=== PATIENT | female | born 1990 | race Caucasian/White ===

== ENCOUNTER 2017-10-23 14:52 | Emergency (ER) | payer OTHER ==
[~2017-10-23] VITALS: Ht 162.6 cm; Wt 118.3 kg
[2017-10-23 15:01] VITALS: TEMP 36.7; Ht 162.6 cm; Wt 118.3 kg
[2017-10-23] MEDS ORDERED: ONDANSETRON INJ 2 MG/ML 2 ML VIAL IV STA (15:07)
[2017-10-23] MEDS ORDERED: MoRPHine SULFATE 4 MG/ML 1 ML CARP\\VIAL IV STA (15:07)
[2017-10-23] MEDS ORDERED: KETOROLAC TROMETHAMINE 30 MG/ML VIAL IV STA (15:07)
[2017-10-23 15:37] LABS: BASO % 0.3 %; BASO ABS # 0.02 K/uL (0-0.2); EOS % 0.6 %; EOS ABS # 0.04 K/uL (0-0.5); HEMATOCRIT 39.6 % (37-47); HEMOGLOBIN 13.4 g/dL (12.0-16.0); IG# 0.02 K/uL (0.00-0.02); LYMPH % 27.9 %; LYMPH ABS # 1.99 K/uL (1.2-3.4); MEAN CELL VOLUME 82.3 fL (80-100); MEAN CORPUSCULAR HEMOGLOBIN 27.9 pg (25-34); MEAN CORPUSCULAR HGB CONC 33.8 g/dl (32-36); MEAN PLATELET VOLUME 12.7 fL (7.4-10.4); MONO % 7.7 %; MONO ABS # 0.55 K/uL (0.11-0.59); NEUT % 63.2 %; NEUT ABS # 4.52 K/uL (1.4-6.5); PLATELET COUNT 226 K/uL (130-400); RED CELL DISTRIBUTION WIDTH CV 14.8 % (11.5-14.5); RED CELL DISTRIBUTION WIDTH SD 44.8 fL (36.4-46.3); WHITE BLOOD COUNT 7.14 K/uL (4.8-10.8)
[2017-10-23] MEDS ORDERED: ACET-1256 PO (15:39)
[2017-10-23] MEDS ORDERED: FLUO20CA35 PO (15:39)
[2017-10-23] MEDS ORDERED: ETON1IMP2 INTRAD (15:39)
[2017-10-23] MEDS ORDERED: IBUP-1050 PO (15:39)
[2017-10-23 16:03] VITALS: O2SAT 99
[2017-10-23 16:10] LABS: ALBUMIN 4.1 gm/dl (3.4-5.0); ALKALINE PHOSPHATASE 78 U/L (45-117); ALT/SGPT 25 U/L (12-78); BLOOD UREA NITROGEN 7 mg/dl (7-18); CARBON DIOXIDE 25 mmol/L (21-32); CKMB < 0.5 ng/ml (0.5-3.6); CREATININE 0.69 mg/dl (0.60-1.20); GLUCOSE 82 mg/dl (70-99); LIPASE 97 U/L (73-393); SODIUM 139 mmol/L (136-145); TOTAL PROTEIN 7.9 gm/dl (6.4-8.2)
[2017-10-23] MEDS ORDERED: OPTIRAY 320 IV PRN (16:45)
[2017-10-23 16:50] LABS: POTASSIUM 3.9 mmol/L (3.5-5.1)
--- NOTE | 2017-10-23 17:03 | DIAGNOSTIC IMAGING REPORT ---
CHEST CTA for PULMONARY ARTERIES CT DOSE: 577.12 mGy.cm HISTORY: Atypical chest pain. TECHNIQUE: Multiaxial CT images of the chest were performed following the intravenous administration of contrast to evaluate the pulmonary arteries. Maximal intensity projection images were also obtained. A dose lowering technique was utilized adhering to the principles of ALARA. COMPARISON STUDY: None. FINDINGS: There is a normal caliber thoracic aorta with no evidence for dissection. There is no evidence for pulmonary embolus. No pleural effusions. No pneumothorax. The liver and spleen are unremarkable. No mediastinal or hilar lymphadenopathy. The central airways are patent. The lungs are clear. IMPRESSION: No evidence for pulmonary embolus. Electronically signed by: Lukas Pritchett M.D. 10/23/2017 5:02 PM Dictated Date/Time: 10/23/2017 4:54 PM
--- NOTE | 2017-10-23 17:32 | DIAGNOSTIC IMAGING REPORT ---
THORACIC SPINE 3 VIEWS HISTORY: mid back pain COMPARISON: None. FINDINGS: There is no fracture. No subluxation. Disc spaces are preserved. There are few small endplate osteophytes within the mid to lower thoracic spine. This is consistent with minor degenerative change. IMPRESSION: No fracture or subluxation within the thoracic spine. A few small endplate osteophytes within the mid to lower thoracic spine. Electronically signed by: Lukas Pritchett M.D. 10/23/2017 5:30 PM Dictated Date/Time: 10/23/2017 5:29 PM
--- NOTE | 2017-10-23 17:32 | DIAGNOSTIC IMAGING REPORT ---
CHEST 1 VW FRONT-NOT PORTABLE HISTORY: Atypical Chest Pain COMPARISON: Chest CTA 10/23/2017. FINDINGS: The lungs are clear. Cardiac silhouette is normal in size. No pleural effusions. No pneumothorax. IMPRESSION: No acute process. Electronically signed by: Lukas Pritchett M.D. 10/23/2017 5:31 PM Dictated Date/Time: 10/23/2017 5:31 PM
--- NOTE | 2017-10-23 17:34 | DIAGNOSTIC IMAGING REPORT ---
LUMBAR SPINE 5 VIEWS HISTORY: lower back pain COMPARISON: None. FINDINGS: There is no fracture. No subluxation. Disc spaces are preserved. Cholecystectomy. Intravenous contrast within the renal collecting systems and bladder due to the prior CT examination. IMPRESSION: No fracture or subluxation within the lumbar spine. Electronically signed by: Lukas Pritchett M.D. 10/23/2017 5:33 PM Dictated Date/Time: 10/23/2017 5:31 PM
[2017-10-23] MEDS ORDERED: OXYCODONE IR HOME PACK PO ONE (18:45)
[2017-10-23 19:07] VITALS: BP 127/95; PULSE 60; O2SAT 98
--- NOTE | 2017-10-23 22:48 | EMERGENCY ROOM VISIT NOTE ---
History Report prepared by Migelibjayden: Erin Saavedra Under the Supervision of: Dr. Alex Guzmán D.O. First contact with patient: 14:52 Chief Complaint: BACK PAIN Stated Complaint: BACK PAIN, SOB History of Present Illness The patient is a 26 year old female who presents to the Emergency Room with complaints of persistent back pain since earlier this morning. She states she woke up with the pain, which she rates as an 8/10 in severity. The pain does not radiate to her legs or buttocks. Movement worsens her discomfort. She denies any numbness or tingling in her groin or legs. She denies any recent falls or trauma. She has no history of IV drug use. She no longer has her gallbladder but still has her appendix. She states she experienced chest pain around 1345 today, but it has resolved here in the ED. she notes that her pain recurred and worsened around 1 PM. At this point she did get some chest pain. She described chest pain is sharp stabbing radiating through to back. Pt denies headache, change in vision, fevers, shortness of breath, nausea, vomiting , diarrhea, pain with urination, and melena. Source of History: patient Onset: earlier this morning Position: back Symptom Intensity: 8/10 Timing: other (persistent) Modifying Factors (Worsening): movement Associated Symptoms: + chest pain, No fevers, No headache, No SOB, No nausea , No vomiting, No melena, No diarrhea, No urinary symptoms, No numbness (of groin or legs) Review of Systems See HPI for pertinent positives & negatives. A total of 10 systems reviewed and were otherwise negative. Past Medical & Surgical Medical Problems: (1) Depression (2) GERD (gastroesophageal reflux disease) Social History Alcohol Use: occasionally Drug Use: none Marital Status: single, in relationship Housing Status: lives with family Occupation Status: employed Current/Historical Medications Scheduled Etonogestrel (Nexplanon), 68 MG INTRAD UD Fluoxetine (Prozac), 20 MG PO DAILY Scheduled PRN Acetaminophen (Tylenol), 500 MG PO UD PRN for Pain or Fever Ibuprofen (Advil), 200 MG PO UD PRN for Pain or Fever Allergies Coded Allergies: Sulfamethoxazole w/Trimethoprim (Verified Allergy, Intermediate, Hives, ) Physical Exam Vital Signs Date Time Temp Pulse Resp B/P (MAP) Pulse Ox O2 Delivery O2 Flow Rate FiO2 10/23/17 19:07 60 20 127/95 98 10/23/17 17:39 66 149/119 97 Room Air 10/23/17 16:55 63 10/23/17 16:03 99 Room Air 10/23/17 16:03 68 161/95 99 Room Air 10/23/17 15:01 36.7 93 18 134/99 100 Room Air Physical Exam GENERAL: Sitting up in bed, alert, well appearing, well nourished, in mild distress holding low back, non-toxic EYE EXAM: normal conjunctiva. OROPHARYNX: no exudate, no erythema, lips, buccal mucosa, and tongue normal and mucous membranes are moist NECK: supple, no nuchal rigidity, no adenopathy, non-tender LUNGS: Clear to auscultation. Normal chest wall mechanics HEART: no murmurs, S1 normal and S2 normal ABDOMEN: abdomen soft, non-tender, normo-active bowel sounds, no masses, no rebound or guarding. BACK: Back is symmetrical on inspection and there is no deformity, acute reproducible tenderness in mid thoracic and upper lumbar paraspinal region SKIN: no rashes and no bruising UPPER EXTREMITIES: upper extremities are grossly normal. LOWER EXTREMITIES: No pitting edema. Flexion and extension of the hips, knees, ankles, and EHL 5/5 bilaterally. Gross sensation is intact. DP's are 2/4 bilateral. Patellar and Achilles reflexes are 1/4 bilateral. NEURO EXAM: Normal sensorium, cranial nerves II-XII intact, normal speech, no weakness of arms. Medical Decision & Procedures ER Provider Diagnostic Interpretation: Radiology results as stated below per my review and the radiologist's interpretation: CHEST CTA for PULMONARY ARTERIES CT DOSE: 577.12 mGy.cm HISTORY: Atypical chest pain. TECHNIQUE: Multiaxial CT images of the chest were performed following the intravenous administration of contrast to evaluate the pulmonary arteries. Maximal intensity projection images were also obtained. A dose lowering technique was utilized adhering to the principles of ALARA. COMPARISON STUDY: None. FINDINGS: There is a normal caliber thoracic aorta with no evidence for dissection. There is no evidence for pulmonary embolus. No pleural effusions. No pneumothorax. The liver and spleen are unremarkable. No mediastinal or hilar lymphadenopathy. The central airways are patent. The lungs are clear. IMPRESSION: No evidence for pulmonary embolus. Electronically signed by: Lukas Pritchett M.D. 10/23/2017 5:02 PM CHEST 1 VW FRONT-NOT PORTABLE HISTORY: Atypical Chest Pain COMPARISON: Chest CTA 10/23/2017. FINDINGS: The lungs are clear. Cardiac silhouette is normal in size. No pleural effusions. No pneumothorax. IMPRESSION: No acute process. Electronically signed by: Lukas Pritchett M.D. 10/23/2017 5:31 PM LUMBAR SPINE 5 VIEWS HISTORY: lower back pain COMPARISON: None. FINDINGS: There is no fracture. No subluxation. Disc spaces are preserved. Cholecystectomy. Intravenous contrast within the renal collecting systems and bladder due to the prior CT examination. IMPRESSION: No fracture or subluxation within the lumbar spine. Electronically signed by: Lukas Pritchett M.D. 10/23/2017 5:33 PM THORACIC SPINE 3 VIEWS HISTORY: mid back pain COMPARISON: None. FINDINGS: There is no fracture. No subluxation. Disc spaces are preserved. There are few small endplate osteophytes within the mid to lower thoracic spine. This is consistent with minor degenerative change. IMPRESSION: No fracture or subluxation within the thoracic spine. A few small endplate osteophytes within the mid to lower thoracic spine. Electronically signed by: Lukas Pritchett M.D. 10/23/2017 5:30 PM Laboratory Results 10/23/17 15:23 Red Blood Count 4.81, Mean Corpuscular Volume 82.3, Mean Corpuscular Hemoglobin 27.9, Mean Corpuscular Hemoglobin Concent 33.8, Mean Platelet Volume 12.7, Neutrophils (%) (Auto) 63.2, Lymphocytes (%) (Auto) 27.9, Monocytes (%) (Auto) 7.7, Eosinophils (%) (Auto) 0.6, Basophils (%) (Auto) 0.3, Neutrophils # (Auto) 4.52, Lymphocytes # (Auto) 1.99, Monocytes # (Auto) 0.55, Eosinophils # (Auto) 0.04, Basophils # (Auto) 0.02 10/23/17 15:23 10/23/17 16:12 Test 10/23/17 15:04 10/23/17 15:23 10/23/17 16:12 10/23/17 16:20 Creatine Kinase MB Ratio (0-3.0) White Blood Count 7.14 K/uL (4.8-10.8) Red Blood Count 4.81 M/uL (4.2-5.4) Hemoglobin 13.4 g/dL (12.0-16.0) Hematocrit 39.6 % (37-47) Mean Corpuscular Volume 82.3 fL (80-100) Mean Corpuscular Hemoglobin 27.9 pg (25-34) Mean Corpuscular Hemoglobin Concent 33.8 g/dl (32-36) Platelet Count 226 K/uL (130-400) Mean Platelet Volume 12.7 fL (7.4-10.4) Neutrophils (%) (Auto) 63.2 % Lymphocytes (%) (Auto) 27.9 % Monocytes (%) (Auto) 7.7 % Eosinophils (%) (Auto) 0.6 % Basophils (%) (Auto) 0.3 % Neutrophils # (Auto) 4.52 K/uL (1.4-6.5) Lymphocytes # (Auto) 1.99 K/uL (1.2-3.4) Monocytes # (Auto) 0.55 K/uL (0.11-0.59) Eosinophils # (Auto) 0.04 K/uL (0-0.5) Basophils # (Auto) 0.02 K/uL (0-0.2) RDW Standard Deviation 44.8 fL (36.4-46.3) RDW Coefficient of Variation 14.8 % (11.5-14.5) Immature Granulocyte % (Auto) 0.3 % Immature Granulocyte # (Auto) 0.02 K/uL (0.00-0.02) Urine Color YELLOW Urine Appearance CLEAR (CLEAR) Urine pH 8.0 (4.5-7.5) Urine Specific Allen 1.007 (1.000-1.030) Urine Protein NEG (NEG) Urine Glucose (UA) NEG (NEG) Urine Ketones NEG (NEG) Urine Occult Blood NEG (NEG) Urine Nitrite NEG (NEG) Urine Bilirubin NEG (NEG) Urine Urobilinogen NEG (NEG) Urine Leukocyte Esterase NEG (NEG) Urine WBC (Auto) 0 /hpf (0-5) Urine RBC (Auto) 0-4 /hpf (0-4) Urine Hyaline Casts (Auto) 1-5 /lpf (0-5) Urine Epithelial Cells (Auto) 5-10 /lpf (0-5) Urine Bacteria (Auto) NEG (NEG) Anion Gap 8.0 mmol/L (3-11) Est Creatinine Clear Calc Drug Dose 156.4 ml/min Estimated GFR () 139.2 Estimated GFR (Non- 120.1 BUN/Creatinine Ratio 10.0 (10-20) Calcium Level 9.0 mg/dl (8.5-10.1) Total Bilirubin 0.6 mg/dl (0.2-1) Alanine Aminotransferase (ALT/SGPT) 25 U/L (12-78) Alkaline Phosphatase 78 U/L (45-117) Creatine Kinase MB < 0.5 ng/ml (0.5-3.6) Total Protein 7.9 gm/dl (6.4-8.2) Albumin 4.1 gm/dl (3.4-5.0) Lipase 97 U/L (73-393) Direct Bilirubin 0.1 mg/dl (0-0.2) Aspartate Amino Transf (AST/SGOT) 20 U/L (15-37) Total Creatine Kinase 64 U/L (26-192) D-Dimer 260 ug/L FEU (0-500) Test 10/23/17 17:51 Troponin I < 0.015 ng/ml (0-0.045) Laboratory results per my review. Medications Administered Medications (Trade) Dose Ordered Sig/Julia Route Start Time Stop Time Status Last Admin Dose Admin Morphine Sulfate (MoRPHine SULFATE INJ) 4 mg NOW STAT IV 10/23/17 15:07 10/23/17 15:08 DC 10/23/17 15:31 4 MG Ketorolac Tromethamine (Toradol Inj) 30 mg NOW STAT IV 10/23/17 15:07 10/23/17 15:08 DC 10/23/17 15:30 30 MG Ondansetron HCl (Zofran Inj) 4 mg NOW STAT IV 10/23/17 15:07 10/23/17 15:08 DC 10/23/17 15:30 4 MG Oxycodone HCl (Roxicodone Immediate Rel 5MG Home Pack) 1 homepack UD ONCE PO 10/23/17 18:45 10/23/17 18:46 DC 10/23/17 18:46 1 HOMEPACK ECG Per My Interpretation Indication: chest pain Rate (beats per minute): 61 Rhythm: normal sinus Findings: RBBB (incomplete RBBB), other (no PVC) ED Course ED COURSE: Vital signs were reviewed and showed the patient is situationally hypertensive. The patients medical record was reviewed The above diagnostic studies were performed and reviewed. ED treatments and interventions as stated above. 1453: The patient was evaluated in room B2. A complete history and physical examination was performed. 1507: Zofran 4 mg IV, Toradol 30 mg IV, Morphine Sulfate 4 mg IV. 1750: I reevaluated the patient. She is feeling better. 1840: Upon reevaluation, the patient is feeling well and is ready to go home. I discussed my findings with the patient and she understands and agrees with the treatment plan. 1845: Oxycodone HCl 5 mg 1 homepack PO. Based on the patients age, coexisting illnesses, exam and lab findings the decision to treat as an outpatient was made. The patient remained stable while under my care. The patient appeared well at the time of discharge. Medical Decision Etiologies such as musculoskeletal, disc herniation, fracture, aortic disease, metastatic disease, cord compression, discitis, infection, renal colic, gastrointestinal, acute exacerbation of chronic back pain, sciatica, cauda equina, as well as others were entertained. Patient is a 26-year-old female who presents the ER for chest and back pain. Patient is completely neurologically intact. CBC along with BMP, LFTs, bilirubin and troponin. UA was negative and checked as she had upper back pain.. She has no abdominal pain. D-dimer was negative. EKG was unremarkable. Imaging of the lumbar thoracic spine was negative. Chest x-ray unremarkable. CT of the chest was benign. Based on history I do favor that this is all musculoskeletal but we also explored the chest pain at length. She denies any history of diabetes, high blood pressure, hyperlipidemia, CAD or sudden in her family on young age. She was given IV morphine. She felt significant better. She was discharged follow-up with PCP as an outpatient with muscle skeletal back pain. Discussed with Pt concerning signs and symptoms to watch out for. Pt was instructed to follow up with their PCP and discussed with the patient their option to return to the ED at anytime for persistent or worsening symptoms. The appropriate anticipatory guidance and out-patient management, including indications for return to the emergency department, were explained at length to the patient and understood. Medication Reconcilliation Current Medication List: was personally reviewed by me Blood Pressure Screening Patient's blood pressure: Elevated blood pressure Blood pressure disposition: Elevated BP felt to be situational Impression Primary Impression: Back pain Scribe Attestation The scribe's documentation has been prepared under my direction and personally reviewed by me in its entirety. I confirm that the note above accurately reflects all work, treatment, procedures, and medical decision making performed by me. Departure Information Dispostion Home / Self-Care Patient Instructions Back Pain - [facility], [facility] Additional Instructions Please follow up with your primary care doctor with in the next 24 hours. Any worsening of your symptoms, please return to the ED immediately. This includes any fevers greater than 100.4, worsening pain, chest pain, shortness breath, persistent nausea, vomiting, unable to eat or drink, weakness or numbness in her arms or legs, numbness in her groin, unable to move her bowels, or any other concerning signs or symptoms from your standpoint. Please take Tylenol or Motrin as needed for pain. You were given medications during this visit that will inhibit your ability to drive, operate machinery and work. Please do NOT drive, operate machinery or work for the next 12hrs. You were also given a prescription for a narcotic. While taking this medication you should also not drive, operate machinery and or work. Problem Qualifiers Primary Impression: Back pain Back pain location: thoracic back pain Chronicity: acute Back pain laterality: bilateral Qualified Codes: M54.6 - Pain in thoracic spine
== END 2017-10-23 19:08 | disposition home or self-care (01) ==
LOC: C.EDB 14:54
DX: M54.6 Pain in thoracic spine (principal); F32.9 Major depressive disorder, single episode, unspecified; K21.9 Gastro-esophageal reflux disease without esophagitis; Z97.5 Presence of (intrauterine) contraceptive device; Z79.899 Other long term (current) drug therapy; Z88.2 Allergy status to sulfonamides

== ENCOUNTER 2019-02-14 21:52 | Inpatient (IN) ==
--- NOTE | 2019-02-14 23:04 | History & Physical Report ---
Date of Service February 14, 2019 Assessment & Plan (1) Supervision of normal intrauterine in multigravida: The patient is noted to have mildly elevated blood pressures upon admission. She has no history of hypertension and has had normal blood pressures during . We will check preeclamptic labs. The patient declines regional anesthesia at this time. heart rate tracing category 2. Anticipate vaginal delivery (2) History of macrosomia in infant in prior , currently in third trimester: (3) Need for rhogam due to Rh negative mother: History of Present Illness Chief Complaint: Contractions Primary Care Provider: Self, Referred The patient is a 28-year-old 4 para 2 with an EDC of 23 February at 38+ weeks gestational age who presents to labor and delivery for evaluation of labor. Patient states the contractions began at approximately 1900 hrs. on day of admission. She denies rupture membranes or vaginal bleeding. The patient has a history of macrosomia with her 2 previous infants. The patient had been scheduled for a term induction at 39 weeks for the history of macrosomia. The patient has had a benign course. Her blood type is O negative, antibody negative, she received RhoGam on 30 November, hepatitis B negative, rubella immune, she had a normal 1 hour Glucola at 16 weeks, she had an elevated 1 hour Glucola at 28 weeks with a normal 2-hour glucose tolerance test, she had a negative third trimester beta strep culture. The patient had a negative cystic fibrosis and SMA screening, she had a negative cell free DNA screen. The patient is also interested in permanent surgical sterilization. She signed state tubal papers on 30 November. Allergies Allergy/AdvReac Type Severity Reaction Status Date / Time Bactrim Allergy Intermediate Hives Verified 10/23/17 15:33 sulfamethoxazole Allergy Intermediate Hives Verified 02/09/19 10:12 trimethoprim Allergy Intermediate Hives Verified 02/09/19 10:12 Home Medications Home Medications Medication Instructions Recorded Confirmed Type vit-iron fum-folic ac 1 tab PO DAILY 09/06/18 02/14/19 History [ Vitamin] loratadine 10 mg tablet 10 mg PO DAILY 01/02/19 02/14/19 History pyridoxine (vitamin B6) 50 mg 50 mg PO DAILY tab 01/02/19 02/14/19 History tablet ranitidine HCl 75 mg PO DAILY 07/30/19 09/11/19 History Patient History Medical History Migraines Cardiac arrhythmia Depression GERD (gastroesophageal reflux disease) History of iron deficiency anemia History of kidney stones History of migraine History of nipple discharge History of varicella No significant family history No significant past surgical history RBBB (right bundle branch block) Surgical History S/P cholecystectomy S/P tonsillectomy Family History Father Anxiety and depression Thyroid disease Grandmother (Paternal) Anxiety and depression Mother Anxiety and depression Kidney stones Thyroid disease Aunt Thyroid disease Social History Preferred Language: Guyanese Communication Ability: Effective Curtain Inspector Required: No Beliefs That Will Affect Care: None marital status: Single Current Living Situation: Family Current Living Situation Comment: Fiance and 2 children. The 2 children are not the same FOB as current preg. Other Information That Helps Us Care for You: No Feels Safe at Home: Yes Safety Concerns: Feels Safe At This Time Smoking Status: Never smoker Hx Alcohol Use: No Hx Substance Use: No Physical Exam Constitutional: WD/WN, vitals as above Respiratory: Auscultation: lungs clear to auscultation bilaterally Cardiovascular: RRR, no murmur, no edema Extremities: no calf tenderness Gastrointestinal (Abdomen): Gravid, vertex, positive heart tones, estimated weight of 8-1/2 pounds Genitourinary: OB Exam Monitor Tracing: + category II and + normal FHT variability Cervix: 3 cm dilated 50% effaced -2 station, artificial rupture membranes for clear fluid Results & Data Vital Signs (Past 12 Hours) Vital Signs Temp Pulse Resp BP 02/14/19 22:58 100 H 139/93 02/14/19 22:47 103 H 158/91 H 02/14/19 22:37 101 H 163/89 H 02/14/19 22:30 102 H 169/91 H 02/14/19 22:27 111 H 160/92 H 02/14/19 22:21 98.4 F 104 H 20 165/95 H 02/14/19 22:08 116 H 169/105 H 02/14/19 22:00 115 H 178/111 H
[2019-02-14] MEDS: LACTATED RINGER'S 1,000 ML IV PRN (23:15)
[2019-02-14 23:16] LABS: Hematocrit (blood only) 34.8 % (37-47); Hemoglobin 11.8 g/dL (12.0-16.0); Mean Corpuscular Volume 88.5 fL (80-100); Mean Platelet Volume 12.9 fL (7.4-10.4); Platelet Count 160 K/uL (130-400); RDW Coefficient of Variation 14.8 % (11.5-14.5); Red Blood Count 3.93 M/uL (4.2-5.4); White Blood Count 10.24 K/uL (4.8-10.8)
[2019-02-14 23:21] LABS: Mean Corpuscular Hgb Conc 33.9 g/dL (32-36)
[2019-02-14] MEDS ORDERED: BUPIVACAINE 0.25% 30 ML VIAL ONE (23:28)
[2019-02-14] MEDS ORDERED: fentaNYL 2MCG/ML ROPIV 1.25MG/ML 100 ML BAG EPI ONE (23:29)
[2019-02-14] MEDS ORDERED: ePHEDrine sulfate 50 MG/ML AMP ONE (23:29)
[2019-02-14] MEDS ORDERED: fentaNYL citrate 100 MCG/2 ML VIAL ONE (23:29)
[2019-02-14 23:35] LABS: Alanine Aminotransferase 19 U/L (12-78); Albumin Level 2.6 gm/dl (3.4-5.0); Aspartate Aminotransferase 18 U/L (15-37); BUN Creatinine Ratio 12.1 (10-20); Bilirubin Direct < 0.1 mg/dl (0-0.2); Blood Urea Nitrogen 8 mg/dl (7-18); Calcium 8.8 mg/dl (8.5-10.1); Carbon Dioxide 23 mmol/L (21-32); Chloride 108 mmol/L (98-107); Creatinine Clr Calc Pharmacy 135.5 ml/min; Est GFR (African American) 136.7; Est GFR (Non-African American) 117.9; Glucose 82 mg/dl (70-99); Potassium 3.6 mmol/L (3.5-5.1); Sodium 142 mmol/L (136-145)
[2019-02-14 23:37] LABS: Albumin Globulin Ratio 0.7 (0.9-2); Alkaline Phosphatase 147 U/L (45-117); Bilirubin,Total 0.3 mg/dl (0.2-1); Total Protein 6.6 gm/dl (6.4-8.2)
--- NOTE | 2019-02-14 23:47 | Anesthesiology Consultation ---
Date of Service February 14, 2019 Assessment & Plan Chart Review Chart Review: Acceptable Risk for Surgery, Patient NOT seen in Pre Admission Testing and Acceptable Risk for Labor Epidural Consults Requested none ASA ASA3 Proposed Anesthesia Anesthesia Type: General and Labor Epidural Risk / Benefits Reviewed With: PT / POA / Parent / Guardian, Accepts Plan and Informed Consent Obtained History Height/Weight Height: 5 ft 3 in Weight: 100.698 kg Allergies Allergy/AdvReac Type Severity Reaction Status Date / Time Bactrim Allergy Intermediate Hives Verified 10/23/17 15:33 sulfamethoxazole Allergy Intermediate Hives Verified 02/09/19 10:12 trimethoprim Allergy Intermediate Hives Verified 02/09/19 10:12 Medications Home Medications Medication Instructions Recorded Confirmed Last Taken vit-iron fum-folic ac 1 tab PO DAILY 09/06/18 02/14/19 02/14/19 [ Vitamin] loratadine 10 mg tablet 10 mg PO DAILY 01/02/19 02/14/19 02/14/19 pyridoxine (vitamin B6) 50 mg 50 mg PO DAILY tab 01/02/19 02/14/19 02/14/19 tablet ranitidine HCl 75 mg PO DAILY 01/02/19 02/14/19 02/14/19 Active Medications Generic Name Dose Route Start Last Admin Trade Name Freq PRN Reason Stop Dose Admin Lactated Ringer's 1,000 mls @ 125 mls/hr 02/14/19 22:46 02/14/19 23:15 Lr IV 02/16/19 22:45 999 mls/hr .Q8H PRN Administration L&D Protocol Protocol NPO Date Last Intake of Fluids: 02/14/19 Time Last Intake of Fluids: 23:00 Date Last Intake of Solids: 02/14/19 Time Last Intake of Solids: 20:00 Past Medical History Medical History Migraines Cardiac arrhythmia Depression GERD (gastroesophageal reflux disease) History of iron deficiency anemia History of kidney stones History of migraine History of nipple discharge History of varicella No significant family history No significant past surgical history RBBB (right bundle branch block) Exercise / Class Metabolic Activity III < 4 Walking/Shop/Light housework Past Family History Family History Father Anxiety and depression Thyroid disease Grandmother (Paternal) Anxiety and depression Mother Anxiety and depression Kidney stones Thyroid disease Aunt Thyroid disease Past Surgical History Surgical History S/P cholecystectomy S/P tonsillectomy Past Anesthesia History No Hx of Anesthesia Complications and No Family Hx of Anesthesia Complications History of PONV No Hx of PONV and No Hx of Motion Sickness Social History Smoking Status: Never smoker Hx Alcohol Use: No Hx Substance Use: No Physical Exam Vital Signs Last Vital Signs Temp 36.9 C 02/14/19 22:21 Pulse 101 H 02/14/19 23:44 Resp 20 02/14/19 22:21 BP 162/80 H 02/14/19 23:44 Pulse Ox 100 02/14/19 23:43 Constitutional + morbidly obese ENMT Mouth: no dentition abnormality Thyromental Distance: < 3.5 Finger Breadths Mallampati Class: II Neck normal visual inspection and trachea midline; neck extension not limited Respiratory normal respiratory effort Auscultation: lungs clear to auscultation bilaterally Cardiovascular Rate/Rhythm: regular rate and regular rhythm Heart Sounds: no murmur Musculoskeletal Spine: lumbar spine normal to inspection; normal cervical ROM Neurologic moves all extremities Motor/Sensory: no sensory deficit Psychiatric Orientation: alert and oriented x 3 Testing Laboratory Results 02/14/19 23:02 02/14/19 23:02
[2019-02-15] MEDS ORDERED: NALOXONE HCL 1 MG in SODIUM CHLORIDE 0.9% 1000ML 1,000 ML IV PRN (00:15)
[2019-02-15] MEDS ORDERED: PROMETHAZINE HCL 25 MG in SODIUM CHLORIDE 0.9% 50 ML IV PRN (00:15)
[2019-02-15] MEDS ORDERED: DiphenhydrAMINE HCL 50 MG/ML VIAL IV PRN (00:15)
[2019-02-15] MEDS ORDERED: ePHEDrine sulfate 50 MG/ML AMP IV PRN (00:15)
[2019-02-15] MEDS ORDERED: NALBUPHINE HCL INJ 10 MG/ML AMP IV PRN (00:15)
[2019-02-15] MEDS ORDERED: fentaNYL 2MCG/ML ROPIV 1.25MG/ML 100 ML BAG EPI PRN (00:15)
[2019-02-15] MEDS ORDERED: NALOXONE HCL 0.4 MG/1 ML VIAL/CARP IV PRN (00:15)
[2019-02-15] MEDS ORDERED: ONDANSETRON INJ 2 MG/ML 2 ML VIAL IV PRN (00:15)
[2019-02-15] MEDS: LACTATED RINGER'S 1,000 ML IV PRN (02:10)
[2019-02-15] MEDS: OXYTOCIN 30 UNITS/500 ML BAG IV PRN ×2 (03:10→04:49)
--- NOTE | 2019-02-15 03:18 | Delivery Summary ---
Vaginal Delivery Summary Date of Service Findings: Viable male with Apgars of 8 and 9 baby delivered over intact perineum cord blood samples obtained placenta delivered spontaneously perineum was found to be intact estimated blood loss 300 cc sponge needle count was correct Labor course: The patient is a 28-year-old 4 para 2 with an EDC of 23 February at 38+ weeks gestational age who presents to labor and delivery for evaluation of labor. Patient states the contractions began at approximately 1900 hrs. on day of admission. She denies rupture membranes or vaginal bleeding. The patient has a history of macrosomia with her 2 previous infants. The patient had been scheduled for a term induction at 39 weeks for the history of macrosomia. The patient has had a benign course. Her blood type is O negative, antibody negative, she received RhoGam on 30 November, hepatitis B negative, rubella immune, she had a normal 1 hour Glucola at 16 weeks, she had an elevated 1 hour Glucola at 28 weeks with a normal 2-hour glucose tolerance test, she had a negative third trimester beta strep culture. The patient had a negative cystic fibrosis and SMA screening, she had a negative cell free DNA screen. The patient is also interested in permanent surgical sterilization. She signed state tubal papers on 30 November. Upon admission the patient was 3 cm dilated and 50% effaced this represented a significant change from her last examination in the office. In addition the patient's blood pressure was elevated with diastolics in the 90s. Patient with no history of preeclampsia with previous deliveries and have been normotensive during her course. Preeclamptic labs were ordered which showed normal platelet count, normal creatinine, and normal liver function tests. The patient became uncomfortable anesthesia was consulted and an epidural was placed. The patient progressed to full dilatation and began her second stage she pushed for 5 minutes delivering the viable male infant cord was clamped and cut cord blood samples were obtained placenta was delivered spontaneously and found to be intact estimated blood loss was 300 cc sponge and needle count was correct. The patient desires a tubal ligation. We will continue her being n.p.o. and add her onto the operative schedule as time allows. Blood pressures will continue to be monitored.
--- NOTE | 2019-02-15 04:34 | Anesthesia Procedure Note ---
Date of Service February 15, 2019 Anesthesia Post Epidural Note Vital Signs Vital Signs: Temp Pulse Resp BP Pulse Ox 36.8 C 76 20 161/87 H 97 02/15/19 01:00 02/15/19 04:28 02/15/19 03:01 02/15/19 04:28 02/15/19 03:18 Pain Intensity Bilateral Abdomen: Pain Intensity: 0 Notes Mental Status: alert / awake / arousable Nausea / Vomiting: adequately controlled Pain: adequately controlled Airway Patency, RR, SpO2: stable & adequate BP & HR: stable & adequate Hydration State: stable & adequate Neuraxial Anesthesia: was administered and sensory block is resolving Anesthetic Complications: no major complications apparent Epidural: Removed without complications and With tip intact
[2019-02-15] MEDS ORDERED: BISACODYL 10 MG SUPP PR PRN (04:56)
[2019-02-15] MEDS ORDERED: ACETAMINOPHEN 325 MG TAB PO PRN (04:56)
[2019-02-15] MEDS ORDERED: BENZOCAINE 20% AER SPR 82.5 GM CAN EXT PRN (04:56)
[2019-02-15] MEDS ORDERED: OXYTOCIN 30 UNITS/500 ML BAG IV PRN (04:56)
[2019-02-15] MEDS ORDERED: ACETAMINOPHEN W/CODEINE #3 1 TAB PO PRN (04:56)
[2019-02-15] MEDS ORDERED: DIPHTHERIA/TETANUS/PERTUSSIS 0.5 ML SYR/VIAL IM ONE (04:56)
[2019-02-15] MEDS ORDERED: HYDROCORTISONE ACETATE 25 MG SUPP PR PRN (04:56)
[2019-02-15] MEDS ORDERED: SUPERCREAM 0.870% 15 GM JAR EXT PRN (04:56)
[2019-02-15] MEDS ORDERED: IBUPROFEN 600 MG TAB PO ONE (05:45)
[2019-02-15] MEDS ORDERED: NIFEdipine 10 MG CAP PO STA (07:30)
[2019-02-15] MEDS: DOCUSATE SODIUM 100 MG CAP PO SCH ×2 (09:10→21:00)
[2019-02-15] MEDS: PRENATAL VITAMIN 1 TAB PO SCH (09:11)
[2019-02-15] MEDS: LABETALOL HCL 100 MG TAB PO SCH ×2 (09:12→21:00)
[2019-02-15] MEDS: IBUPROFEN 600 MG TAB PO PRN (16:42)
[2019-02-16] MEDS: IBUPROFEN 600 MG TAB PO PRN (04:37)
--- NOTE | 2019-02-16 06:51 | Obstetrical Progress Note ---
Date of Service <Rivas Shabazz MD - Last Filed: 02/16/19 06:57> February 16, 2019 Assessment & Plan <Rivas Shabazz MD - Last Filed: 02/16/19 06:57> (1) : 02/15 PPD#1 feeling well, voiding well, ambulating some in room having elevated blood pressures in post period responding well to Labetalol 100mg BID After discharge will have 6 week follow-up Subjective <Rivas Shabazz MD - Last Filed: 02/16/19 06:57> Ms Garcia is a 28 y/o female ; PPD #1 following spontaneous vaginal delivery at 38+ weeks; doing well this morning; some mild abdominal cramping/pain; voiding well, passing gas but no bowel movements; tolerating meals overnight; and able to ambulate some; some persistent spotting with intermittent improvement this morning. Review of Systems Constitutional: denies fever; chills; sweats; headache Respiratory: denies shortness of breath, difficulty breathing Cardiac: denies chest pain; palpitations; chest pressure Breast: denies breast pain : denies dysuria Physical Exam <Rivas Shabazz MD - Last Filed: 02/16/19 06:57> General: alert; oriented; no acute distress Cardiac: RRR; no m/g/r Respiratory: CTAB a/p; no wheezes/rales/rhonchi; no increased work of breathing; symmetrical chest rise; no respiratory distress Abdomen: soft; NT/ND; bowel sounds positive Uterus: uterine fundus firm; palpable at umbilicus Lower extrem: no lower extremity edema or swelling; no deep calf pain; Diane's sign negative b/l Results & Data <Rivas Shabazz MD - Last Filed: 02/16/19 06:57> Vital Signs (Past 12 Hours) Vital Signs Temp Pulse Resp BP BP Pulse Ox 02/16/19 00:30 36.7 C 89 17 121/79 98 02/15/19 21:45 146/88 H 155/90 H 02/15/19 21:15 36.5 C 85 18 163/92 H Medications Administered Current Inpatient Medications Acetaminophen (Tylenol) 650 mg PO Q6H PRN PRN Reason: Pain/WASSERMAN/Fever Stop: 03/17/19 04:55 Acetaminophen/Codeine Phosphate (Tylenol W/Codeine #3) 1 - 2 tab PO Q4H PRN PRN Reason: Pain not controlled with... Stop: 03/17/19 04:55 Benzocaine (Dermoplast Pain Relieving Bogata) 1 appln EXT PRN PRN PRN Reason: Perineal Discomfort Stop: 03/17/19 04:55 Bisacodyl (Dulcolax) 5 mg PO 2000 [facility] Stop: 02/16/19 20:01 Bisacodyl (Dulcolax) 10 mg NH DAILY PRN PRN Reason: No BM on 2nd post- day Stop: 03/17/19 04:55 Cocaine HCl (Supercream 0.870%) 1 gm EXT BID PRN PRN Reason: Hemorrhoidal Inflammation Stop: 03/01/19 04:55 Docusate Sodium (Colace) 100 mg PO DAILY@08,21 [facility] Stop: 03/17/19 07:59 Last Admin: 02/15/19 21:00 Dose: 100 mg Documented by: Hydrocortisone (Anusol Hc) 25 mg NH BID PRN PRN Reason: Hemorrhoidal Inflammation Stop: 03/17/19 04:55 Oxytocin (Pitocin) 30 units in 500 mls @ 333.333 mls/hr IV .Q1H30M PRN; Protocol PRN Reason: Bleeding Control Stop: 03/17/19 04:55 Ibuprofen (Motrin) 600 mg PO Q4H PRN PRN Reason: Pain/WASSERMAN/Cramping/Fever Stop: 03/17/19 04:55 Last Admin: 02/16/19 04:37 Dose: 600 mg Documented by: Labetalol HCl (Normodyne) 100 mg PO BID [facility] Stop: 03/17/19 08:59 Last Admin: 02/15/19 21:00 Dose: 100 mg Documented by: Prenat Multivit/Tyre Retreader/Iron/Folic Ac ( Vitamin) 1 tab PO DAILY@08 [facility] Stop: 03/17/19 07:59 Last Admin: 02/15/19 09:11 Dose: 1 tab Documented by: <Maria Guadalupe Cabello, - Last Filed: 02/16/19 08:04> Co-Signing Physician Notes Resident Physician Supervision Note: I was present with Dr. Shabazz during the history and exam. I discussed the case with the resident and agree with the findings and plan as documented in the note. Any exceptions or clarifications are listed here: PPD#1. Doing well. BP ok this morning. Continue 100mg BID labetalol - will continue to watch BPs today. She would like to go home. Documented By: Maria Guadalupe Cabello, DO Resident Activity Tracking <Rivas Shabazz MD - Last Filed: 02/16/19 06:57> Resident Involvement: Resident Care Provided Care Provided: OB Delivery
[2019-02-16 08:17] LABS: Hematocrit (blood only) 31.3 % (37-47); Hemoglobin 10.5 g/dL (12.0-16.0); Mean Corpuscular Volume 89.4 fL (80-100); Mean Platelet Volume 12.4 fL (7.4-10.4); Platelet Count 141 K/uL (130-400); RDW Coefficient of Variation 15.1 % (11.5-14.5); RDW Standard Deviation 48.6 fL (36.4-46.3)
[2019-02-16 08:33] LABS: Albumin Level 2.3 gm/dl (3.4-5.0); BUN Creatinine Ratio 11.4 (10-20); Calcium 8.5 mg/dl (8.5-10.1); Creatinine Clr Calc Pharmacy 160.7 ml/min; Est GFR (African American) 144.6; Est GFR (Non-African American) 124.7; Potassium 3.8 mmol/L (3.5-5.1)
[2019-02-16 08:34] LABS: Mean Corpuscular Hgb Conc 33.5 g/dL (32-36)
[2019-02-16 08:36] LABS: Albumin Globulin Ratio 0.7 (0.9-2); Bilirubin,Total 0.2 mg/dl (0.2-1); Globulin 3.4 gm/dl (2.5-4.0); Total Protein 5.7 gm/dl (6.4-8.2)
[2019-02-16] MEDS: LABETALOL HCL 100 MG TAB PO SCH ×2 (08:36→20:26)
[2019-02-16] MEDS: DOCUSATE SODIUM 100 MG CAP PO SCH ×2 (08:36→20:26)
[2019-02-16] MEDS: PRENATAL VITAMIN 1 TAB PO SCH (08:36)
[2019-02-16] MEDS ORDERED: BISACODYL 5 MG TABEC PO SCH (20:00)
== END 2019-02-16 21:30 | disposition home or self-care (01) | DRG 807 ==
LOC: OPB 21:52 → 4S1 21:55 → 4S2 02-15 06:30
DX: Z37.0 Single live birth; R03.0 Elevated blood-pressure reading, without diagnosis of hypertension; O36.0130 Maternal care for anti-D [Rh] antibodies, third trimester, not applicable or unspecified; Z3A.38 38 weeks gestation of pregnancy; Z87.59 Personal history of other complications of pregnancy, childbirth and the puerperium; Z79.899 Other long term (current) drug therapy; Z88.2 Allergy status to sulfonamides